=== PATIENT | female | born 1980 | race Native Hawaiian/Other Pacific Islander ===

== ENCOUNTER 2018-10-22 03:16 | Inpatient (IN) | payer MEDICAID, OTHER ==
[2018-10-22] MEDS ORDERED: BRETHINE SUB-Q PRN (03:45)
[2018-10-22] MEDS ORDERED: XYLOCAINE 2% INFILTRATI ONE (03:45)
[2018-10-22] MEDS ORDERED: AMPICILLIN/NS 2 GM/100 ML 2 GM/100 ML BAG IV ONE (03:45)
[2018-10-22] MEDS ORDERED: MINERAL OIL PO PRN (03:45)
--- NOTE | 2018-10-22 03:53 | History and Physical Report ---
History of Present Illness Date of admission: uterine contractions Chief complaint: uterine contractions History of present illness: 38yo , no care, fundal height 35cm, presents to L&D by EMS complaining of contractions that started yesterday in her sleep. She is writhing in pain. She reports minimal vaginal spotting and no loss of fluid. On vaginal exam, frothy, foul smelling blood tinged vaginal discharge is noted. She states she was seen at [facility] at 7 months and diagnosed with a UTI. She denies any ultrasounds this . Past History - Obstetrical History : 5 Medications and Allergies Allergies Allergy/AdvReac Type Severity Reaction Status Date / Time No Known Allergies Allergy Unverified 10/05/13 03:19 Home Medications Medication Instructions Recorded Confirmed Last Taken Type No Known Home Medications [No 10/05/13 10/05/13 Unknown History Reported Home Medications] Active Meds: Active Medications Ephedrine Sulfate (Ephedrine Sulfate) 10 mg IV Q2M PRN PRN Reason: Hypotension Oxytocin/Sodium Chloride (Pitocin/Ns 20 Unit/1000ml Drip) 20 units in 1,000 mls @ 125 mls/hr IV DIRECT ITZEL Oxytocin/Sodium Chloride (Pitocin/Ns 30 Unit/500ml) 30 units in 500 mls @ 2 mls/hr IV TITR ITZEL; Protocol Lactated Ringer's (Lactated Ringers) 1,000 mls @ 125 mls/hr IV DIRECT ITZEL Ampicillin Sodium (Ampicillin/Ns 2 Gm/100 Ml) 2 gm in 100 mls @ 100 mls/hr IV ONCE ONE; Protocol Stop: 10/22/18 04:44 Lidocaine (Xylocaine 2%) 20 ml INFILTRATI ONCE ONE Stop: 10/22/18 03:46 Mineral Oil (Mineral Oil) 30 ml PO QHS PRN PRN Reason: Constipation Terbutaline Sulfate (Brethine) 0.25 mg SUB-Q ONCE PRN PRN Reason: Hyperstimulation/Hypertonicity - Obstetrical FHR: category 1 Cervical Dilatation: 4 Cervical Effacement Percentage: 70 station: -1 Uterine Contraction Pattern: Regular (bulging membranes) Results All other labs normal. Assessment and Plan - Patient Problems (1) Active labor Current Visit: No Status: Acute Plan to address problem: No care labs STAT ultrasound for gestational age Ampicillin for GBS prophylaxis Anticipate (2) Insufficient care Current Visit: No Status: Acute
[2018-10-22] MEDS: LACTATED RINGERS 1,000 ML IV SCH ×2 (04:00→08:18)
[2018-10-22] MEDS ORDERED: PITOCin/NS 30 UNIT/500ML 30 UNITS/500 ML BAG IV SCH (04:00)
[2018-10-22] MEDS ORDERED: MAGNESIUM SULFATE 4GM/100ML 4 GM/100 ML BAG IV ONE (04:43)
--- NOTE | 2018-10-22 04:48 | Event Note ---
Ultrasound reveals EGA 35 1/7 wks EDC 11/25/18 EFW 2639g WALLY 9 FHR 149 Vertex [place] Therefore will administer betamethasone and give magnesium sulfate for tocolysis during administration of antental steroids.
--- NOTE | 2018-10-22 04:48 | Ultrasound Report ---
US OB follow up INDICATION / CLINICAL INFORMATION: no care. COMPARISON: None available. FINDINGS: Single viable intrauterine gestation in the cephalic presentation. heart rate is 149 bpm The grade 1 anterior placenta is free of the os. The WALLY is 9. measurements: BPD 8.5 equal to 34 weeks 4 days Head circumference 31 equal to 34 weeks 4 days Abdominal circumference 31.3 equal to 31 weeks 1 day Femur length 7 equal to 36 weeks Estimated body weight 2639 g. IMPRESSION: 1. Viable single 35 week gestation. Signer Name: Scar Melvin MD Signed: 10/22/2018 4:43 AM Workstation Name: [id number]
[2018-10-22] MEDS ORDERED: CELESTONE SOLUSPAN IM SCH (05:00)
[2018-10-22] MEDS ORDERED: MAGNESIUM SULFATE 40GM/1000ML 40 GM/1,000 ML BAG IV SCH (05:00)
[2018-10-22] MEDS ORDERED: LACTATED RINGERS 1,000 ML IV SCH (05:00)
[2018-10-22] MEDS ORDERED: STADOL IV PRN (05:13)
[2018-10-22] MEDS ORDERED: STADOL ONE (05:14)
[2018-10-22 05:38] LABS: Benzodiazepines Screen,Urine PRESUMPTIVE NEGATIVE; Cannabinoid Screen,Urine PRESUMPTIVE NEGATIVE; Cocaine Screen,Urine PRESUMPTIVE NEGATIVE; Methadone Screen,Urine PRESUMPTIVE NEGATIVE; Opiate Screen,Urine PRESUMPTIVE NEGATIVE
[2018-10-22 05:54] LABS: Hematocrit 30.6 % (30.3-42.9); Hemoglobin 10.3 gm/dl (10.1-14.3); Mean Corpuscular HGB Conc 34 % (30-34); Mean Corpuscular Volume 83 fl (79-97); Platelet Count 320 K/mm3 (140-440); Red Blood Count 3.71 M/mm3 (3.65-5.03); Red Cell Distribution Width 16.6 % (13.2-15.2)
[2018-10-22 06:32] LABS: Amphetamine Screen,Urine PRESUMPTIVE POSITIVE
--- NOTE | 2018-10-22 07:30 | Event Note ---
S: Patient writhing in pain despite tocolytic. O: Cervix 6/80/-1 membranes intact A: labor 35 1/7wks s/p BMZ x 1 Magnesium sulfate for tocolysis during steroids. NICU notified P: BMZ second dose due 10/23 Ampicillin for GBS prophylaxis in process Anticipate
[2018-10-22] MEDS ORDERED: NARCAN 2 MG/2 ML IV PRN (07:47)
--- NOTE | 2018-10-22 07:51 | Anesthesia Consultation ---
Anesthesia Consult and Med Hx Date of service: 10/22/18 - Airway Anesthetic Teeth Evaluation: Good ROM Head & Neck: Adequate Mental/Hyoid Distance: Adequate Mallampati Class: Class II Intubation Access Assessment: Probably Good - Pulmonary Exam CTA: Yes - Cardiac Exam Cardiac Exam: RRR - Pre-Operative Health Status ASA Pre-Surgery Classification: ASA2 Proposed Anesthetic Plan: Epidural - Pulmonary Hx Smoking: No Hx Asthma: No Hx Respiratory Symptoms: No SOB: No COPD: No Home Oxygen Therapy: No Hx Pneumonia: No Hx Sleep Apnea: No - Cardiovascular System Hx Hypertension: No Hx Coronary Artery Disease: No Hx Heart Attack/AMI: No Hx Angina: No Hx Percutaneous Transluminal Coronary Angioplasty (PTCA): No Hx Cardia Arrhythmia: No Hx Pacemaker: No Hx Internal Defibrillator: No Hx Valvular Heart Disease: No Hx Heart Murmur: No Hx Peripheral Vascular Disease: No - Central Nervous System Hx Neuromuscular Disorder: No Hx Seizures: No CVA: No Hx Back Pain: Yes Hx Psychiatric Problems: No - Gastrointestinal Hx Ulcer: No Hx Gastroesophageal Reflux Disease: Yes - Endocrine Hx Renal Disease: No Hx End Stage Renal Disease: No Hx Cirrhosis: No Hx Liver Disease: No Hx Insulin Dependent Diabetes: No Hx Non-Insulin Dependent Diabetes: No Hx Thyroid Disease: No Hx Hypothyroidism: No Hx Hyperthyroidism: No - Hematic Hx Anemia: No Hx Sickle Cell Disease: No - Other Systems Hx Alcohol Use: No Hx Substance Use: No Hx Cancer: No Hx Obesity: No
[2018-10-22] MEDS ORDERED: AMPICILLIN/NS 1 GM/50 ML 1 GM/50 ML BAG IV SCH (08:00)
[2018-10-22] MEDS ORDERED: fentaNYL-BUPIV 2 MCG/ML-0.125% 200 MCG/100 ML BAG EPIDURAL SCH (08:00)
[2018-10-22] MEDS ORDERED: PITOCin/NS 30 UNIT/500ML 30,000 MILLIUNITS/500 ML BAG IV ONE (12:44)
[2018-10-22] MEDS: PITOCin/NS 20 UNIT/1000ML DRIP 20 UNITS/1,000 ML BAG IV SCH ×2 (13:26→14:33)
--- NOTE | 2018-10-22 13:43 | Event Note ---
Mother notified drug screen positive for amphetamines. States her last use was Wed/Wednesday of last week.
--- NOTE | 2018-10-22 13:46 | Procedure Note ---
OB Delivery Note - Delivery Surgeon: CAITY AMBROSE Estimated blood loss: 300cc - Vaginal Delivery presentation: vertex Delivery position: OA Intrapartum events: no care, other(please specify) (maternal +amphetamines) Delivery induction: none Delivery augmentation: rupture of membranes Delivery monitor: external FHT Route of delivery: Delivery placenta: spontaneous - Infant A at 1 minute: 8 at 5 minutes: 9 Gender: Male (2993g, spontaneous cry, placed on maternal abdomen)
[2018-10-22] MEDS ORDERED: BENADRYL PO PRN (13:50)
[2018-10-22] MEDS ORDERED: LANSINOH TP PRN (13:50)
[2018-10-22] MEDS ORDERED: TUCKS PAD TP PRN (13:50)
[2018-10-22] MEDS ORDERED: DULCOLAX PR PRN (13:50)
[2018-10-22] MEDS ORDERED: PHENERGAN PO PRN (13:50)
[2018-10-22] MEDS ORDERED: TYLENOL PO PRN (13:50)
[2018-10-22] MEDS ORDERED: ZOFRAN IV PRN (13:50)
[2018-10-22] MEDS ORDERED: SODIUM CHLORIDE FLUSH SYRINGE 10 ML IV NR (14:00)
[2018-10-22] MEDS: IBUPROFEN PO SCH ×2 (18:03→22:26)
[2018-10-22] MEDS ORDERED: MILK OF MAGNESIA PO PRN (22:00)
[2018-10-23 01:21] LABS: Hematocrit 26.3 % (30.3-42.9); Hemoglobin 8.6 gm/dl (10.1-14.3)
[2018-10-23] MEDS ORDERED: BOOSTRIX IM ONE (06:00)
[2018-10-23] MEDS: PRENATAL VITAMIN PO SCH (10:06)
[2018-10-23] MEDS: IBUPROFEN PO SCH (10:06)
--- NOTE | 2018-10-23 16:40 | Progress Note ---
Assessment and Plan - Patient Problems (1) Active labor Current Visit: No Status: Acute (2) Insufficient care Current Visit: No Status: Acute Plan to address problem: Recovering well (3) Anemia complicating Current Visit: Yes Status: Acute Plan to address problem: Asymptomatic. Plan iron supplementation at discharge. Subjective - Subjective Interval history: 38yo , PPD#1 s/p infant 35 weeks. Patient reports: appetite normal, pain well controlled, ambulating normally : doing well Objective - Vital Signs Latest vital signs: Vital Signs Temp Pulse Resp BP BP Pulse Ox 10/23/18 12:08 97.6 F 90 12 98/70 99 10/23/18 08:32 98.3 F 78 12 99/69 98 10/23/18 00:35 97.8 F 74 18 108/73 97 10/22/18 21:31 97.4 F L 78 18 113/71 100 Intake and Output 10/23/18 10/23/18 10/23/18 07:59 15:59 23:59 Intake Total 540 Output Total 1 Balance 539 Intake: Oral 540 Output: Pad Count 1 Other: Total, Intake Amount 300 # Voids Void 1 - Exam Uterus: Present: normal, fundal height below umbilicus - Labs Labs: Abnormal lab results 10/22/18 10/23/18 Range/Units 17:37 00:48 Hgb 8.6 L (10.1-14.3) gm/dl Hct 26.3 L (30.3-42.9) % Magnesium 3.00 H (1.7-2.3) mg/dL
--- NOTE | 2018-10-23 18:52 | Discharge Summary ---
Providers - Providers Date of Admission: 10/22/18 03:57 Attending physician: CAITY AMBROSE 10/23/18 18:38 Consult to Case Management [CONS] Urgent Services Needed at Discharge: Certified Nurse Practitioner Notified:: No Phone number called:: No Was contact made?: No Additional Physician Instructions: Positive urine drug screen on admission - discharge planned tomorrow Primary care physician: CAITY AMBROSE Hospitalization Reason for admission: labor Delivery: Procedure details: - Delivery Surgeon: CAITY AMBROSE Estimated blood loss: 300cc - Vaginal Delivery presentation: vertex Delivery position: OA Intrapartum events: no care, other(please specify) (maternal +amphetamines) Delivery induction: none Delivery augmentation: rupture of membranes Delivery monitor: external FHT Route of delivery: Delivery placenta: spontaneous - A at 1 minute: 8 at 5 minutes: 9 Gender: Male (2993g, spontaneous cry, placed on maternal abdomen) complications: none Discharge diagnosis: delivery Pertinent studies: Abnormal Lab Results 10/23/18 10/23/18 10/23/18 00:48 00:48 05:59 Hgb 8.6 L Hct 26.3 L Magnesium 2.30 2.10 Condition at discharge: Stable Disposition: DC-01 TO HOME OR SELFCARE - Discharge Diagnoses (1) Active labor Status: Acute (2) Insufficient care Status: Acute (3) Anemia complicating Status: Acute Comment: asymptomatic. continue iron at discharge. Plan - Discharge Medications Prescriptions: Ferrous Sulfate [Feosol 325 MG tab] 325 mg PO BID 30 Days #60 tablet Ibuprofen [Motrin 800 MG tab] 800 mg PO Q8HR PRN 30 Days #30 tablet PRN Reason: Pain, Moderate (4-6) - Provider Discharge Summary Activity: no sex for 6 weeks, no heavy lifting 4 weeks, no strenuous exercise Additional instructions: [] Smoking cessation referral if applicable(refer to patient education folder for contact #) [] Refer to [facility] Booklet Call your doctor immediately for: * Fever > 100.5 * Heavy vaginal bleeding ( >1 pad per hour) * Severe persistent headache * Shortness of breath * Reddened, hot, painful area to leg or breast * Drainage or odor from incision. * Keep incision clean and dry at all times and follow doctor's instructions regarding bathing/showering - Follow up plan Follow up: CAITY AMBROSE MD [Primary Care Provider] - 7 Days
[2018-10-24] MEDS: IBUPROFEN PO SCH (09:44)
[2018-10-24] MEDS: PRENATAL VITAMIN PO SCH (09:45)
[2018-10-24 17:02] VITALS: BP 132/65
== END 2018-10-24 18:26 | disposition home or self-care (01) | DRG 805 ==
LOC: TRG 03:16 → LD 03:57 → OB 15:42
PROVIDERS: ADMIT Obstetrics & Gynecology; ATTEND Obstetrics & Gynecology
PROC: 10E0XZZ Delivery of Products of Conception, External Approach (ICD-10-PCS; principal; 2018-10-22)
DX: O99.324 Drug use complicating childbirth (principal); O60.14X0 Preterm labor third trimester with preterm delivery third trimester, not applicable or unspecified; Z37.0 Single live birth; O99.62 Diseases of the digestive system complicating childbirth; K21.9 Gastro-esophageal reflux disease without esophagitis; O99.02 Anemia complicating childbirth; D64.9 Anemia, unspecified; F15.90 Other stimulant use, unspecified, uncomplicated; Z3A.35 35 weeks gestation of pregnancy
CPT/HCPCS: 36415; 76816; 80307; 83735; 85014; 85018; 85027; 86592; 86850; 86900; 86901; 87806; 88307; 90471; 90715; G0378; J0290; J0595; J0702; J2590; J3475; J7120

== ENCOUNTER 2020-08-15 12:37 | Outpatient (CLI) | payer SELFPAY ==
[2020-08-15] MEDS ORDERED: LACTATED RINGERS 500 ML IV ONE (12:56)
[2020-08-15] MEDS ORDERED: BUTORPHANOL 2 MG/1 ML INJ ONE (13:02)
[2020-08-15] MEDS ORDERED: OXYTOCIN DRIP 30,000 MILLIUNITS/500 ML BAG IV ONE (13:04)
--- NOTE | 2020-08-15 13:28 | History and Physical Report ---
History of Present Illness Date of examination: 08/15/20 Date of admission: 08/15/2020 Chief complaint: contractions History of present illness: 39y/o @ unknown gestational age presents via EMS with regular uterine contractions and pelvic pain. The patient has not had care during the . At the time of presentation the patient was completely dilated with a bulging amniotic sac. Ultrasound was done that demonstrated findings of intrauterine demise. Past History Past Medical History: no pertinent history Past Surgical History: no surgical history Social history: no significant social history - Obstetrical History : 6 Para: 5 Hx # Term Pregnancies: 5 Number of Pregnancies: 0 Spontaneous Abortions: 0 Induced : 0 Number of Living Children: 5 Medications and Allergies Allergies Allergy/AdvReac Type Severity Reaction Status Date / Time No Known Allergies Allergy Unverified 10/05/13 03:19 Home Medications Medication Instructions Recorded Confirmed Last Taken Type Ferrous Sulfate [Feosol 325 MG tab] 325 mg PO BID 30 Days #60 tablet 10/23/18 Unknown Rx Ibuprofen [Motrin 800 MG tab] 800 mg PO Q8HR PRN 30 Days #30 10/23/18 Unknown Rx tablet Active Meds: Active Medications Lactated Ringer's (Lactated Ringers) 500 mls @ 999 mls/hr IV BOLUS ONE Stop: 08/15/20 13:26 Oxytocin/Sodium Chloride (Pitocin/Ns 30 Unit/500ml) 30 units in 500 mls @ 40 mls/hr IV TITR ITZEL; Protocol Review of Systems All systems: negative Genitourinary: pelvic pain, contractions, no leakage of fluid - Vital Signs Vital signs: Vital Signs Pulse Pulse Ox 84 100 08/15/20 12:58 08/15/20 12:58 Temp Pulse Resp BP Pulse Ox 85 99 08/15/20 13:22 08/15/20 13:22 - Physical Exam Breasts: Positive: deferred Cardiovascular: Regular rate - Obstetrical FHR: other (No cardiac activity) Cervical Dilatation: 10 Results All other labs normal. Assessment and Plan - Patient Problems (1) Intrauterine Current Visit: Yes Status: Acute Plan to address problem: Patient had a subsequent vaginal delivery (2) No care in current Current Visit: Yes Status: Acute (3) Active labor Current Visit: Yes Status: Acute
--- NOTE | 2020-08-15 13:32 | Procedure Note ---
OB Delivery Note - Delivery Date of Delivery: 08/15/20 Surgeon: ADIS MARTINO Estimated blood loss: 100cc - Vaginal Delivery presentation: breech Intrapartum events: no care, labor-<37 weeks Route of delivery: breech extraction Delivery placenta: spontaneous Delivery cord: 3 umbilical vessels Episiotomy: none Delivery laceration: none Anesthesia: none Delivery comments: After the confirming by ultrasound of an intrauterine , amniotomy was performed with evidence of clear fluid. The patient began pushing with delivery of the feet and torso. Pinard's maneuver was performed for delivery of the upper extremities. There was noted to be entrapment of the head. With maternal effort assistance was used in order to manipulate the cervix around the head for delivery. The delivery was productive of a nonviable male infant with a weight of 484 g. The placenta delivered spontaneously intact with a three- vessel cord. No lacerations were noted. - Infant A at 1 minute: 0 at 5 minutes: 0 Gender: Male (Weight is 1 pound 1 ounce)
--- NOTE | 2020-08-15 13:34 | Discharge Summary ---
Providers - Providers Date of Admission: 2020-08-15 Date of discharge: 08/15/20 Attending physician: ADIS MARTINO Primary care physician: ADIS MARTINO Hospitalization Reason for admission: labor Delivery: breech extraction Discharge diagnosis: other, intrapartum demise ( delivery and breech presentation), delivery baby: male Hospital course: The patient was admitted via EMS with findings of intrauterine demise and active labor. The patient had a breech vaginal delivery with a nonviable male infant. Her course was uneventful. Condition at discharge: Good Disposition: DC-01 TO HOME OR SELFCARE - Discharge Diagnoses (1) Intrauterine Status: Acute (2) No care in current Status: Acute (3) Active labor Status: Acute Plan - Discharge Medications Prescriptions: Ibuprofen [Motrin] 800 mg PO Q8HR PRN #30 tablet PRN Reason: Pain , Severe (7-10) HYDROcodone/APAP 5-325 [[place] 5/325] 1 each PO Q6HR PRN #15 tablet PRN Reason: Pain - Provider Discharge Summary Activity: no sex for 6 weeks, no heavy lifting 4 weeks, no strenuous exercise Diet: routine Instructions: routine Additional instructions: [] Smoking cessation referral if applicable(refer to patient education folder for contact #) [] Refer to [facility] Booklet Call your doctor immediately for: * Fever > 100.5 * Heavy vaginal bleeding ( >1 pad per hour) * Severe persistent headache * Shortness of breath * Reddened, hot, painful area to leg or breast * Schedule visit in 4 weeks - Follow up plan
[2020-08-15] MEDS ORDERED: OXYTOCIN DRIP 30 UNITS/500 ML BAG IV SCH (14:00)
--- NOTE | 2020-08-15 14:28 | Ultrasound Report ---
ULTRASOUND OBSTETRIC LIMITED INDICATION / CLINICAL INFORMATION: labor. TECHNIQUE: Transabdominal ultrasound imaging. COMPARISON: None available. FINDINGS: HEART RATE (beats per minute): 0 AMNIOTIC FLUID INDEX (cm) = not evaluated PRESENTATION: Breech. ADDITIONAL FINDINGS: The technologist notes that the membranes ruptured and the baby was delivered at the end of the study. IMPRESSION: demise. Signer Name: Anatoliy Manley Jr, MD Signed: 08/15/2020 2:24 PM Workstation Name: [id number]
[2020-08-15] MEDS ORDERED: ACETAMINOPHEN 325 MG TAB PO ONE (14:29)
[2020-08-15 14:41] VITALS: BP 111/70
[2020-08-15] MEDS ORDERED: BUTORPHANOL 2 MG/1 ML INJ IV ONE (15:00)
[2020-08-15 15:31] LABS: Basophils % (Auto) 0.2 % (0.0-1.8); Eosinophils % (Auto) 0.1 % (0.0-4.3); Hematocrit 30.6 % (30.3-42.9); Hemoglobin 10.5 gm/dl (10.1-14.3); Lymphocytes # (Auto) 0.6 K/mm3 (1.2-5.4); Lymphocytes % (Auto) 7.1 % (13.4-35.0); Mean Corpuscular HGB Conc 34 % (30-34); Mean Corpuscular Volume 91 fl (79-97); Monocytes # (Auto) 0.3 K/mm3 (0.0-0.8); Monocytes % (Auto) 3.3 % (0.0-7.3); Platelet Count 244 K/mm3 (140-440); Red Blood Count 3.37 M/mm3 (3.65-5.03); Red Cell Distribution Width 15.4 % (13.2-15.2)
== END 2020-08-15 15:25 | disposition home or self-care (01) ==
LOC: LD 12:37 → TRG 12:37
PROVIDERS: ATTEND Obstetrics & Gynecology
DX: O62.9 Abnormality of forces of labor, unspecified (principal); O36.8190 Decreased fetal movements, unspecified trimester, not applicable or unspecified; Z3A.00 Weeks of gestation of pregnancy not specified
CPT/HCPCS: 36415; 76815; 85025; 88305; J0595; J2590